=== PATIENT | female | born 1990 | race Caucasian/White ===

== ENCOUNTER 2022-03-06 15:06 | Inpatient (IN) | payer BC ==
[~2022-03-06] VITALS: Ht 167.6 cm; Wt 68.0 kg
== END 2022-03-07 17:34 | disposition left against medical advice (07) | DRG 330 ==
LOC: ER 15:06 → EDBD 15:06 → ER 16:37 → SEC-K 20:19 → O/R 21:04 → SURG 23:42 → SURH 03-07 01:29
PROVIDERS: Surgery; ADMIT Internal Medicine; ATTEND Internal Medicine
PROC: 0DQH4ZZ Repair Cecum, Percutaneous Endoscopic Approach (ICD-10-PCS; 2022-03-06)
PROC: 0DTJ4ZZ Resection of Appendix, Percutaneous Endoscopic Approach (ICD-10-PCS; principal; 2022-03-06 20:00)
DX: K35.30 Acute appendicitis with localized peritonitis, without perforation or gangrene (principal); K91.72 Accidental puncture and laceration of a digestive system organ or structure during other procedure; Z20.822 Contact with and (suspected) exposure to COVID-19